=== PATIENT | female | born 1960 | race Hispanic/Latino ===

== ENCOUNTER 2022-10-22 08:35 | Outpatient (CLI) | payer BC | END 2022-10-22 08:36 | disposition home or self-care (01) | LOC: CSHULT 08:35 | PROVIDERS: ATTEND Internal Medicine Gastroenterology | DX: K21.9 Gastro-esophageal reflux disease without esophagitis (principal); K76.0 Fatty (change of) liver, not elsewhere classified; R63.4 Abnormal weight loss; R68.81 Early satiety | CPT/HCPCS: 76705 ==